=== PATIENT | male | born 1975 | race Caucasian/White ===

== ENCOUNTER 2016-11-18 11:49 | Emergency (ER) | payer OTHER ==
[~2016-11-18] VITALS: Ht 185.4 cm; Wt 93.0 kg
[~2016-11-18 11:49] MED LIST: CIPRO PO; DECADRON PO; DICLOFENAC PO; DICYCLOMINE HCL20 MG PO; FLEXERIL PO; FLEXERIL10 M1 PO; NAPROSYN500 MG PO; NORFLEX100 M1 PO; PHENERGAN PO; ULTRAM PO; VOLTAREN75 MG PO
[2016-11-18] MEDS ORDERED: NO MEDICATIONS (12:12)
== END 2016-11-18 13:12 | disposition home or self-care (01) ==
LOC: SED 11:49
DX: Z48.01 Encounter for change or removal of surgical wound dressing (principal); F17.210 Nicotine dependence, cigarettes, uncomplicated
CPT/HCPCS: 29130; 99282